=== PATIENT | female | born 1970 | race Caucasian/White ===

== ENCOUNTER 2020-02-25 20:48 | Emergency (ER) | payer OTHER, MEDICAID, SELFPAY ==
[2020-02-25 20:57] VITALS: BP 125/86; PULSE 100; RESP 16; TEMP 36.8; O2SAT 98
--- NOTE | 2020-02-25 21:43 | XR_ITS ---
EXAMINATION: XR FOOT, RIGHT CLINICAL INFORMATION: Right fifth toe fracture COMPARISON: None TECHNIQUE: AP, lateral, and oblique views of the right foot. FINDINGS: Bones are normal anatomic alignment. I do not appreciate any acute fracture or dislocation on these images. 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 Prominent calcaneal heel spur at the attachment point of the plantar aponeurosis. Incidental bipartite medial first sesamoid. XR/XR foot RT 2V IMPRESSION: Chronic appearing changes but no acute fracture or dislocation.
[2020-02-25] MEDS: Acetaminophen 325 MG TABLET 650 MG PO (22:14)
--- NOTE | 2020-02-25 22:20 | ED.WOUNDLAC ---
HPI - Wound/Laceration General Chief Complaint: Wound/Laceration Stated Complaint: Leg laceration/Fall Time Seen by Provider: 02/25/20 21:43 Source: patient Mode of arrival: ambulatory Limitations: no limitations History of Present Illness HPI narrative: Patient presents to ED for right 5th toe laceration due to hitting it on block of wood at home. Patient states her last tetanus shot was more than 5 years ago. Patient denies much pain from toe. Patient denies hitting head or loss of consciousness. Related Data Allergies Allergy/AdvReac Type Severity Reaction Status Date / Time Sulfa (Sulfonamide Allergy Angioedema Verified 02/25/20 20:56 Antibiotics) acetaminophen [From Percocet] AdvReac Vomiting Verified 02/25/20 20:56 oxycodone [From Percocet] AdvReac Vomiting Verified 02/25/20 20:56 Review of Systems Review of Systems: Yes all other systems are reviewed and are negative Constitutional: Constitutional: Reports as per HPI and Reports no additional constitutional complaints Eyes: Eyes: Reports as per HPI and Reports no additional eye complaints ENT: Reports system reviewed and no additional complaints, except as documented and Reports as per HPI Cardiovascular: Cardiovascular: Reports as per HPI and Reports no additional cardiovascular complaints Respiratory: Respiratory: Reports as per HPI and Reports no additional respiratory complaints Gastrointestinal: Gastrointestinal: Reports as per HPI and Reports no additional gastrointestinal complaints Musculoskeletal: Musculoskeletal: Reports no additional musculoskeletal complaints and Reports as per HPI Comments: Right 5th toe laceration. Neurologic: Reports system reviewed and no additional complaints, except as documented and Reports as per HPI Psychiatric: Psychiatric: Reports no additional psychiatric complaints and Reports as per HPI [facility] Past Medical History Medical History (Updated 02/26/20 @ 00:00 by Background Daemon) Endometriosis Social History Social History Alcohol intake: never Smoked in Last 30 Days: No Advance Directives: No Advance Directives Information Provided: No Physical Exam Vital Signs: Vital Signs: Last Vital Signs Temp 98.3 F 02/25/20 20:57 Pulse 100 02/25/20 20:57 Resp 16 02/25/20 20:57 BP 125/86 02/25/20 20:57 Pulse Ox 98 02/25/20 20:57 Body Mass Index 30.0 Const: General: cooperative, healthy appearing, comfortable, no acute distress, well developed, alert, awake and Physically active Orientation/consciousness: patient oriented x3 HENMT: Head: Yes normal to inspection, Yes No palpable skull fracture present, Yes normocephalic, Yes atraumatic, No abrasion, No Acrocyanosis present, No Gloria's sign, No contusion, No cranial bruits, No hematoma, No laceration, No occipital foramen tenderness, No palpable skull fracture, No raccoon eyes, No scalp tenderness, No Temporal artery tenderness present, No periorbital ecchymosis and No other Eyes: General: appearance normal, both eyes and all related structures Neck: Neck: Yes normal visual inspection, Yes full ROM, Yes no lymphadenopathy, Yes no meningeal signs, Yes trachea midline, Yes supple and No tender Chest: Chest palpation & inspection: normal inspection of the chest and normal palpation of entire chest wall Resp: Effort & Inspection: normal respiratory effort and able to speak in complete sentences Auscultation: clear to auscultation bilaterally Cardio: Jugular venous distension: no JVD Heart sounds: S1 normal heart sound present and S2 normal heart sound present GI: Inspection: Yes normal to inspection and No abdominal wall ecchymosis Palpation (GI): Soft to palpation, not firm, nontender, no guarding and not rigid : General: No CVA tenderness and Yes no CVA tenderness Back/Spine/Pelvis: Back: no CVA tenderness, No CVA tenderness and No back tenderness Skin: General skin exam: no rashes or lesions noted Neuro: General: patient oriented x3, gait normal, no meningeal signs and CN's II-XI intact bilaterally Cranial nerves: Yes CN's II-XII intact bilaterally Extrem: Other: Right 5th toe laceration on lateral aspect of toe. Patient has complete range of motion of toe. Negative for any bone exposure. Capillary refil is intact. Dorsal pedis pulse intact. Course Course Course Narrative: Patient will be sent for x-ray to rule out any fracture or foot. Patient will need laceration repair. Reevaluation(s) Reevaluation #1: 1.5 cm laceration on lateral aspect of right pinky was clean with Betadine and normal saline. 5 mL of 2% lidocaine was used for digital block. Size four nylon suture was used for repair. Three sutures placed. Foot x-ray was negative for fracture. Patient given tetanus injection Time: 23:25 MDM - Wound/Laceration MDM Narrative Medical decision making narrative: Right toe laceration repair Discharge Plan Discharge Clinical Impression: Laceration Patient Disposition: Home, Self-Care Instructions: Laceration (ED) Additional Instructions: Return to the ED immediately for any redness, bluish black discoloration of toe, pus discharge, foul odor, fever, chills, or any other concerning symptoms. Sutures should be removed in 9 days. Interventions: ED Discharge Assessment Last Done: 02/25/20 23:35 Discharge Date/Time: 02/25/20 23:40 Print Language: Mohawk
[2020-02-25] MEDS: Lidocaine HCl 2 % MPF 5 ML VIAL INFILTRATI ×2 (22:23→22:24)
== END 2020-02-25 23:40 | disposition home or self-care (01) ==
PROVIDERS: Emergency Provider Internal Medicine; PCP Internal Medicine
DX: S91.114A Laceration without foreign body of right lesser toe(s) without damage to nail, initial encounter (principal); W20.8XXA Other cause of strike by thrown, projected or falling object, initial encounter; Y93.9 Activity, unspecified; Y92.015 Private garage of single-family (private) house as the place of occurrence of the external cause; Y99.9 Unspecified external cause status
CPT/HCPCS: 12001; 73620; 90471; 90715; 99284

== ENCOUNTER → 2024-03-13 17:21 | Outpatient (BNV) | payer OTHER, MEDICAID, SELFPAY | PROVIDERS: Visit Provider Radiology Diagnostic Radiology | DX: R10.9 Unspecified abdominal pain (principal) | CPT/HCPCS: 74176 ==

== ENCOUNTER 2025-01-29 08:54 | Outpatient (AMB) | payer OTHER, MEDICAID, SELFPAY ==
--- NOTE | 2025-01-29 09:11 | MHC.OFFVIS ---
Vital Signs 01/29/25 09:11 Height 5 ft 4 in Weight 175 lb BMI 30.0 Intake Visit Reasons: Ingrowing Toe Nail Intake Note: Thea sawant is a 54 year old female who presents today as a new patient for an evaluation oh her ingrown of the left hallux. Patient reports the ingrown is located on both lateral and medial aspect of the toe and has been going on for about 1 year. She has not tried any previous treatment. she had a previous ingrown on her right hallux where a nail avulsion with matrixectomy was performed. Patient states a pallet had fallen on her right hallux and now that nail is growing oddly and she would like to have the nail removed as well. Allergies gluten Allergy (Verified 01/29/25 09:12) hives latex Allergy (Verified 01/29/25 09:12) hives Sulfa (Sulfonamide Antibiotics) Allergy (Verified 03/13/24 16:47) Angioedema acetaminophen (From Percocet) Adverse Reaction (Verified 03/13/24 16:47) Vomiting oxycodone (From Percocet) Adverse Reaction (Verified 03/13/24 16:47) Vomiting HPI Comments Details: The patient is a 54-year-old female with a PMH as seen below presenting with concerns regarding a painful fungal nail to the right hallux and an ingrown toenail to the left hallux B/L borders. The patient states she has had previous intervention by a program management intern to the right hallux, where part of the toenail was removed due to an ingrown condition. Subsequently, the toenail was injured by a pallet of wood chips, leading to abnormal nail growth upwards rather than outwards, causing discomfort with footwear due to increased thickness and abnormal shape. The patient has a family history of ingrown toenails. The patient reports no pus or infection currently. Patient also experiences pain to B/L nail borders of the left hallux at the areas of the ingrown nail. The patient states her nails have been causing pain for the past few years, but have recently worsened. The patient has been managing the condition by trimming the nail to alleviate pain. She denies any other pedal concerns. [facility] Medical History (Updated 01/29/25 @ 09:24 by Gerri Butt DPM) Pain in toes of both feet Ingrowing nail Nail dystrophy Nail disorder Endometriosis Social History Alcohol intake: never Review of Systems Const Details: - Integumentary: Reports ingrown toenail to the left hallux and fungal nail to the right hallux with pain. All systems reviewed & are unremarkable except as noted in HPI and below Physical Exam Vital Signs: BMI result Body Mass Index 30.0 Extrem Other: B/L LE Focused Physical Exam: Derm: Thickened, discolored, and dystrophic toenail noted to the right hallux with the distal aspect minimally loosely attached to the nail bed. Increased incurvation of medial and lateral nail borders of the left hallux consistent with ingrown toenails. No active bleeding, purulence, or drainage noted. Skin supple and turgor WNL. No ecchymosis or discoloration noted. No erythema or clinical signs of infection noted. Remaining nails WNL. Vasc: DP/PT pulses palpable. CFT < 3 secs. Temp gradient warm to warm. Pedal hair absent. No varicosities noted. Mild edema to B/L hallucal nails. Neuro: Protective sensations grossly intact. MSK: Pain on palpation to B/L halluces in the area of the nails, worse to the right hallux. No crepitus or fluctuance noted. ROM of the forefoot, hindfoot, and ankle WNL. No other gross abnormalities noted. Office Procedures AMB Debridement/Avulsion Podia Details: Procedure: Right hallux total nail avulsion with matrixectomy Cleansed right hallux with an alcohol swab and injected 10cc of 2%lidocaine plain in a hallux block fashion. Next applied a tourniquet to the right hallux and then cleansed the right hallux with Betadine. Attention was drawn to the thickened, dystrophic, and discolored right hallucal nail and a Winslow was utilized to free the offending nail from the nail bed and nail matrix. Next using a hemostat, the offending nail was removed completely. A curette was used to ensure all spicules were removed. Next, 4 phenol swabs were applied to the nail bed and matrix for 30 seconds each. An alcohol swab was applied to the right hallucal nail bed and once dried, triple antibiotic ointment, 2x2 gauze, and coban was applied to the right hallux. After care instructions were provided. [id number] Nail matrixectomy Procedure code (CPT) selection complete Office Meds lidocaine HCl 10 mg/mL (1 %) injection solution Performing Provider: Gerri Butt DPM Performing Location: [facility] Administered by: Gerri Butt DPM on 01/29/25 17:32 Dose Route Admin Location Dispensed Lot Number Expiration Date [facility] [employer] 10 mL subcut 10 mL [id number] Total Dispensed Waste 10 mL 0 % Comments: 2% lidocaine plain was used. Triple Antibiotic 3.5 mg-400 unit-5,000 unit topical ointment packet Performing Provider: Gerri Butt DPM Performing Location: [facility] [place] [facility] Administered by: Gerri Butt DPM on 01/29/25 17:32 Dose Route Admin Location Dispensed Lot Number Expiration Date [facility] [employer] 1 appl topical 1 appl [id number] [employer] povidone-iodine 10 % topical swab Performing Provider: Gerri Butt DPM Performing Location: [facility] [place] [facility] Administered by: Gerri Butt DPM on 01/29/25 17:32 Dose Route Admin Location Dispensed Lot Number Expiration Date [facility] [employer]ch[employer] 1 appl topical 1 appl [id number] [employer]. ethyl chloride 100 % topical spray Performing Provider: Gerri Butt DPM Performing Location: [facility] [place] [facility] Administered by: Gerri Butt DPM on 01/29/25 17:32 Dose Route Admin Location Dispensed Lot Number Expiration Date [facility] [employer]ch[employer]ising [employer] 1 appl topical 116 mL [id number] [employer] phenol 89 % topical swab Performing Provider: Gerri Butt DPM Performing Location: [facility] [place] Administered by: Gerri Butt DPM on 01/29/25 17:32 Dose Route Admin Location Dispensed Lot Number Expiration Date [facility] Retail Merch[employer]ising [employer] 4 appl topical 4 appl [id number] [facility] Assessment & Plan Assessment & Plan (1) Pain in toes of both feet: Code(s): M79.674 - Pain in right toe(s); M79.675 - Pain in left toe(s) Category: Medical (2) Ingrowing nail: Code(s): L60.0 - Ingrowing nail Category: Medical (3) Nail dystrophy: Code(s): L60.3 - Nail dystrophy Category: Medical (4) Nail disorder: Code(s): L60.9 - Nail disorder, unspecified Category: Medical (5) Tinea unguium: Code(s): B35.1 - Tinea unguium Plan Patient was informed and verbally consented to the use of an ambient scribe for clinic note documentation during this visit. I discussed with the patient the options for treating the ingrown toenail and onychomycosis, including the risks and benefits of nail avulsions and antifungal treatments. We agreed to proceed with a total nail avulsion with matrixectomy on the right hallux today, and a partial nail avulsion on the left hallux B/L borders at the next visit. I explained the aftercare instructions, including soaking in Epsom salt and applying Neosporin, and ensured the patient understood the need for follow-up in two weeks. - Performed a total nail avulsion with matrixectomy to the right hallux. - Provided patient with aftercare instructions. - Patient is to wear shoes with a wide toebox. - Patient is to wear supportive shoegear and avoid barefoot walking. RTC in 2 weeks, will do left hallux PNA at next appt. Orders: Orders AMB Debridement/Avulsion Podiatry Today B35.1 - Tinea unguium, L60.0 - Ingrowing nail, L60.3 - Nail dystrophy, L60.9 - Nail disorder, unspecified, M79.674 - Pain in right toe(s), M79.675 - Pain in left toe(s) Medications: Discontinued cyclobenzaprine Discontinued Reason: Patient no longer taking 10 mg PO TID PRN 20 tabs 0RF muscle spasm lidocaine 4% Discontinued Reason: Patient no longer taking 1 patch topical DAILY PRN 15 ea 0RF pain morphine Partial Fill upon patient request. Discontinued Reason: Patient no longer taking 15 mg PO Q4-6H PRN 8 tabs 0RF severe pain (scale score 7-10) Coding Level of Care Code New Pt Level 4 (77498) Diagnoses Pain in toes of both feet M79.674; M79.675 Ingrowing nail L60.0 Nail dystrophy L60.3 Nail disorder L60.9 Tinea unguium B35.1 CPT Codes Skin Debridement - CPT: 77878 Nail matrixectomy ([id number]) Time Spent (min) 65 Comment 20 mins for procedure
== END 2025-01-29 10:12 | disposition home or self-care (01) ==
PROVIDERS: Visit Provider Student in an Organized Health Care Education/Training Program
DX: M79.674 Pain in right toe(s) (principal); M79.675 Pain in left toe(s); L60.0 Ingrowing nail; L60.3 Nail dystrophy; L60.9 Nail disorder, unspecified; B35.1 Tinea unguium
CPT/HCPCS: 11750; 99204

== ENCOUNTER → 2025-01-29 08:54 | Outpatient (BNVA) | payer MEDICAID, SELFPAY | PROVIDERS: Visit Provider Student in an Organized Health Care Education/Training Program | DX: L60.0 Ingrowing nail (principal); L60.3 Nail dystrophy; L60.9 Nail disorder, unspecified; M79.675 Pain in left toe(s); M79.674 Pain in right toe(s); B35.1 Tinea unguium | CPT/HCPCS: 11750; 99202; J2003 ==

== ENCOUNTER 2025-02-12 09:20 | Outpatient (AMB) | payer OTHER, MEDICAID, SELFPAY ==
--- NOTE | 2025-02-12 09:47 | MHC.OFFVIS ---
Vital Signs 02/12/25 09:47 Height 5 ft 4 in Weight 175 lb BMI 30.0 Intake Visit Reasons: 30 mins appt for left hallux PNA w/ matrixectomy; Intake Note: Thea Ga is a 54 year old female who presents to the office today for a left hallux PNA w/ matrixectomy. At last visit a total nail avulsion with matrixectomy to the right hallux was performed. Pt states she is doing well with no further concerns at this time. Allergies gluten Allergy (Verified 02/12/25 09:47) hives latex Allergy (Verified 02/12/25 09:47) hives Sulfa (Sulfonamide Antibiotics) Allergy (Verified 02/12/25 09:47) Angioedema acetaminophen (From Percocet) Adverse Reaction (Verified 02/12/25 09:47) Vomiting oxycodone (From Percocet) Adverse Reaction (Verified 02/12/25 09:47) Vomiting HPI Comments Details: The patient is a 54-year-old female presenting with pain in the left hallux due to an ingrown toenail to B/L nail borders and a follow up S/P right hallux TNA with matrixectomy. She reports soreness predominantly affecting the medial border but also impacting the lateral side. The soreness has been persistent despite her efforts to trim the nail to alleviate discomfort. The exact onset of symptoms was not precisely discussed, but the current level of discomfort has prompted her to seek medical advice. She has not received any prior interventions for the left hallux. Additionally, The patient adhered to all post-operative care instructions, including regular soaking of the site, applying Neosporin, and a bandaid to the area. Initially, there was some soreness following the procedure; however, she denies any ongoing tenderness, pus, or bleeding from the right hallux. She denies any new pedal injuries. She denies any other pedal concerns. [facility] Medical History (Updated 01/29/25 @ 09:24 by Gerri Butt DPM) Pain in toes of both feet Ingrowing nail Nail dystrophy Nail disorder Endometriosis Social History Alcohol intake: never Review of Systems Narrative - Integumentary/Extremities: Reports soreness of the left hallux, predominantly on the medial border and also affecting the lateral border. Denies pain, purulence, or bleeding from the right hallux surgical site And reports healed total nail avulsion to the right hallux. Const All systems reviewed & are unremarkable except as noted in HPI and below Physical Exam Vital Signs: BMI result Body Mass Index 30.0 Extrem Other: B/L LE Focused Physical Exam: Derm: Right hallux total nail avulsion site noted to be well healed with no signs of drainage or purulence noted. Increased incurvation of medial and lateral nail borders of the left hallux consistent with ingrown toenails. No active bleeding, purulence, or drainage noted. Skin supple and turgor WNL. No ecchymosis or discoloration noted. No erythema or clinical signs of infection noted. Remaining nails WNL. Vasc: DP/PT pulses palpable. CFT < 3 secs. Temp gradient warm to warm. Pedal hair absent. No varicosities noted. Mild edema to B/L hallucal nails. Neuro: Protective sensations grossly intact. MSK: No pain on palpation to the right hallux. Pain on palpation to the left hallux medial and lateral borders, worse to the medial border. No crepitus or fluctuance noted. ROM of the forefoot, hindfoot, and ankle WNL. No other gross abnormalities noted. Office Procedures AMB Debridement/Avulsion Podia Details: Procedure: Left hallux medial border partial nail avulsion with matrixectomy Cleansed the left hallux with an alcohol swab and injected 10cc of 2% lidocaine plain in a hallux block fashion. Next, a tourniquet was applied and the left hallux/nail was cleansed with betadine. Next, attention was drawn to the medial border of the left hallucal nail where a freer was used to free up the nail from the nail bed. Next, an angolan anvil was used to trim the medial nail border and a hemostat was used to remove the offending nail border. A currette was used to inspect and remove any remaining spicules. Next, 3 phenol swabs were applied to the medial nail border for 30 seconds each. Next, attention was drawn to the lateral border of the left hallucal nail where a freer was used to free up the nail from the nail bed. Next, an angolan anvil was used to trim the lateral nail border and a hemostat was used to remove the offending nail border. A currette was used to inspect and remove any remaining spicules. Next, 3 phenol swabs were applied to the lateral nail border for 30 seconds each. An alcohol swab was applied to the medial and lateral borders and once dried, triple antibiotic ointment, a bandaid, 2x2 gauze, and coban was applied to the left hallux. After care instructions were provided. 53595 Partial/Total nail avulsion (1 nail) Procedure code (CPT) selection complete Office Meds lidocaine HCl 10 mg/mL (1 %) injection solution Performing Provider: Gerri Butt DPM Performing Location: [facility] Administered by: Gerri Butt DPM on 02/13/25 07:31 Dose Route Admin Location Dispensed Lot Number Expiration Date [facility] [employer] 10 mL subcut 10 mL [id number] Total Dispensed Waste 10 mL 0 % Comments: 2% lidocaine was used Triple Antibiotic 3.5 mg-400 unit-5,000 unit topical ointment packet Performing Provider: Gerri Butt DPM Performing Location: [facility] [place] [facility] Administered by: Gerri Butt DPM on 02/13/25 07:31 Dose Route Admin Location Dispensed Lot Number Expiration Date [facility] [employer] 1 appl topical 1 appl [id number] [employer] povidone-iodine 10 % topical swab Performing Provider: Gerri Butt DPM Performing Location: [facility] [place] [facility] Administered by: Gerri Butt DPM on 02/13/25 07:31 Dose Route Admin Location Dispensed Lot Number Expiration Date [facility] [employer] 1 appl topical 1 appl [id number] [employer]. ethyl chloride 100 % topical spray Performing Provider: Gerri Butt DPM Performing Location: [facility] [facility] Administered by: Gerri Butt DPM on 02/13/25 07:31 Dose Route Admin Location Dispensed Lot Number Expiration Date [facility] [employer] 1 appl topical 116 mL [id number] [employer] phenol 89 % topical swab Performing Provider: Gerri Butt DPM Performing Location: [facility] [facility] Administered by: Gerri Butt DPM on 02/13/25 07:31 Dose Route Admin Location Dispensed Lot Number Expiration Date [facility] [employer] 2 appl topical 2 appl [id number] [facility] Assessment & Plan Assessment & Plan (1) Pain in toes of both feet: Code(s): M79.674 - Pain in right toe(s); M79.675 - Pain in left toe(s) Category: Medical (2) Ingrowing nail: Code(s): L60.0 - Ingrowing nail Category: Medical (3) Nail dystrophy: Code(s): L60.3 - Nail dystrophy Category: Medical (4) Nail disorder: Code(s): L60.9 - Nail disorder, unspecified Category: Medical (5) Tinea unguium: Code(s): B35.1 - Tinea unguium Plan Patient was informed and verbally consented to the use of an ambient scribe for clinic note documentation during this visit. I informed the patient that the right hallux TNA site was healed and discussed the discontinuation of soaking, Neosporin, and Band-Aids, except for Band-Aid use when wearing tighter shoes. We reviewed the treatment options for the left hallux, specifically the partial nail avulsion with matrixectomy to be performed on the medial and lateral borders. We also talked about her travel plans and that post-procedural air travel will present no issues and to continue similar aftercare instructions as she did to the right hallux. - Cease soaking the right hallux in Epsom salt and water and discontinue the use of Neosporin; continued use of Band-Aids is advised only for protection with tighter footwear. - Performed a partial nail avulsion on both the medial and lateral borders of the left hallux with matrixectomy. Provided patient with aftercare instructions. - Patient is to wear shoes with a wide toebox. - Patient is to wear supportive shoegear and avoid barefoot walking. RTC PRN. Orders: Orders AMB Debridement/Avulsion Podiatry 02/12/25 L60.0 - Ingrowing nail, L60.3 - Nail dystrophy, L60.9 - Nail disorder, unspecified, M79.674 - Pain in right toe(s), M79.675 - Pain in left toe(s) Coding Level of Care Code Est Pt Level 4 (45807) Diagnoses Pain in toes of both feet M79.674; M79.675 Ingrowing nail L60.0 Nail dystrophy L60.3 Nail disorder L60.9 Tinea unguium B35.1 CPT Codes Skin Debridement - CPT: 97993 Partial/Total nail avulsion (1 nail) ([id number]) Time Spent (min) 45 Comment 15 mins for procedure
== END 2025-02-12 11:14 | disposition home or self-care (01) ==
PROVIDERS: Visit Provider Student in an Organized Health Care Education/Training Program
DX: M79.674 Pain in right toe(s) (principal); M79.675 Pain in left toe(s); L60.0 Ingrowing nail; L60.3 Nail dystrophy; L60.9 Nail disorder, unspecified; B35.1 Tinea unguium
CPT/HCPCS: 11730

== ENCOUNTER → 2025-02-12 09:20 | Outpatient (BNVA) | payer OTHER, SELFPAY | PROVIDERS: Visit Provider Student in an Organized Health Care Education/Training Program | DX: L60.0 Ingrowing nail (principal); L60.3 Nail dystrophy; L60.9 Nail disorder, unspecified; B35.1 Tinea unguium; M79.674 Pain in right toe(s); M79.675 Pain in left toe(s) | CPT/HCPCS: 11730; J2003 ==